=== PATIENT | female | born 1945 | race Two or more races ===

== ENCOUNTER 2025-03-17 12:07 | Emergency (ER) | payer OTHER ==
[~2025-03-17] VITALS: Ht 154.9 cm; Wt 74.8 kg
[2025-03-17] MEDS ORDERED: LETROZOLE2.5 MG PO (12:11)
[2025-03-17] MEDS ORDERED: VALSARTAN40 MG PO (12:11)
[2025-03-17] MEDS ORDERED: ATORVASTATIN CA10 MG PO (12:12)
[2025-03-17 12:14] VITALS: BP 125/62; O2SAT 97
[2025-03-17] MEDS ORDERED: CETIRIZINE HCL 10 MG TABLET PO ONE ×2 (12:45→12:49)
[2025-03-17] MEDS ORDERED: ACETAMINOPHEN 500 MG GEL..CAP PO ONE ×2 (12:45→12:50)
[2025-03-17] MEDS ORDERED: METHYLPREDNISOLONE SOD SUCC 125 MG VIAL IV ONE (12:45)
[2025-03-17] MEDS ORDERED: GUAIFEN/DEXTROMETHORPHAN/PE 10 ML BLIST.PACK PO ONE ×2 (12:45→12:50)
[2025-03-17] MEDS ORDERED: METHYLPREDNISOLONE SOD SUCC 125 MG VIAL ONE (12:50)
[2025-03-17 13:52] LABS: BASO % 0.7 % (0.1-1.2); EOS # 0.30 (0.04-0.54); EOS % 3.5 % (0.7-7.0); LYMPH # 1.27 (1.18-3.74); LYMPH % 14.6 % (19.3-53.1); MEAN PLATELET VOLUME 8.90 fl (9.4-12.4); MONO # 0.52 (0.24-0.82); MONO % 6.0 % (4.7-12.5); NEUT # 6.50 (1.56-6.13); NEUT % 74.9 % (34.0-71.1); RED CELL DISTRIBUTION WIDTH 13.8 % (11.6-14.4)
[2025-03-17 14:34] LABS: ALT/SGPT 22.0 U/L (12-78); AST/SGOT 16.0 U/L (15-37); BILIRUBIN TOTAL 0.57 mg/dL (0.3-1.2); BUN CREA RATIO 22.0 (7.0-25.0); CREATININE SERUM 0.86 mg/dL (0.55-1.02); GFR 63.98; GLOBULINA 3.6 G/DL (2.4-3.5); GLUCOSE FASTING 111.0 mg/dL (65-100); OSMOLALITY SERUM 288.0 MOSM/KG (275-295)
[2025-03-17 15:21] LABS: COVID-19 AG NEGATIVE (NEGATIVE)
[2025-03-17] MEDS ORDERED: ZITHROMAX500 MG PO (15:31)
[2025-03-17] MEDS ORDERED: MUCINEX DM ER1 EAC1 PO (15:31)
[2025-03-17] MEDS ORDERED: SINGULAIR10 MG PO (15:31)
== END 2025-03-17 17:29 | disposition home or self-care (01) ==
LOC: ER 12:08
PROVIDERS: General Practice
DX: J06.9 Acute upper respiratory infection, unspecified (principal); I10 Essential (primary) hypertension; E78.49 Other hyperlipidemia; Z85.3 Personal history of malignant neoplasm of breast; M79.672 Pain in left foot; S92.912A Unspecified fracture of left toe(s), initial encounter for closed fracture; W18.39XA Other fall on same level, initial encounter; Y93.89 Activity, other specified; Y92.89 Other specified places as the place of occurrence of the external cause; Z20.822 Contact with and (suspected) exposure to COVID-19
CPT/HCPCS: 36415 ×2; 73620; 96365; 99283; J3490